=== PATIENT | male | born 1985 | race American Indian/Alaskan Native ===

== ENCOUNTER 2020-11-10 18:34 | Emergency (ER) | payer SELFPAY ==
[2020-11-10 21:18] VITALS: BP 163/100
--- NOTE | 2020-11-10 21:21 | Event Note ---
ED Screening Note Date of service: 11/10/20 Time: 21:19 ED Screening Note: 35-year-old uncircumcised male patient presents emergency department with complaints of painful swelling to the glans penis occurring intermittently for the last few weeks, worsening this morning. States he has continued to pass urine without difficulty. No preceding trauma. No recent surgery. No priapism. General: Awake, appropriately interactive, no acute distress. Neck: Supple. Full range of motion intact. Cardiovascular: Normal peripheral perfusion. Pulmonary: No respiratory distress. Patient is speaking normally without use of accessory muscles. Skin: No apparent rashes or lesions. Neurological: No facial asymmetry. Speech is clear. Follows commands. Patient is alert and oriented. Musculoskeletal: Moves all four extremities spontaneously with normal range of motion. Psych: Cooperative. Appropriate mood and affect. Focused genitourinary exam deferred to additional ED providers once examination room becomes available. I have greeted and performed a focused rapid initial assessment of this patient. A comprehensive ED assessment and evaluation of the patient, analysis of all test results, and completion of the medical decision-making process will be conducted by additional ED providers. This initial assessment/diagnostic orders/clinical plan/treatment(s) is/are subject to change based on patients health status, clinical progression and re-assessment. Further treatment and workup at subsequent clinical provider's discretion. Patient/guardian urged not to elope from the ED as their condition may be serious if not clinically assessed and managed.
[2020-11-10] MEDS ORDERED: AZITHROMYCIN 250 MG TAB PO ONE (21:37)
[2020-11-10] MEDS ORDERED: LIDOCAINE-MPF (1%) 10 MG/1 ML VIAL 5 ML INFILTRATI ONE (21:37)
[2020-11-10] MEDS ORDERED: traMADol 50 MG TAB PO ONE (21:38)
--- NOTE | 2020-11-10 22:04 | Emergency Department Report ---
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 States he has continued to pass urine without difficulty. No preceding trauma. No recent surgery. No priapism. Patient states he is , denies penile discharge, however he has redness irritation and pain is exacerbated by palpation and voiding.. Patient denies hematuria no pyuria. There is been no fevers, chills no abdominal pain no nausea vomiting. Pain rated at 4/10. - Related Data Previous Rx's Medication Instructions Recorded Last Taken Type Doxycycline Monohydrate 100 mg PO 14 #7 tablet 11/10/20 Unknown Rx Mupirocin [Bactroban 2% OINT] 1 applic TP TID #1 tube 11/10/20 Unknown Rx Allergies Allergy/AdvReac Type Severity Reaction Status Date / Time No Known Allergies Allergy Unverified 11/10/20 21:18 ED Review of Systems ROS: Stated complaint: PAINFUL URINATION Other details as noted in HPI Constitutional: denies: chills, fever Eyes: denies: eye pain, eye discharge, vision change ENT: denies: ear pain, throat pain Respiratory: denies: cough, shortness of breath, wheezing Cardiovascular: denies: chest pain, palpitations Endocrine: no symptoms reported Gastrointestinal: as per HPI Genitourinary: urgency, dysuria, frequency, other (shaft swelling erythrhema ). denies: hematuria, discharge, testicular pain, testicular mass Musculoskeletal: denies: back pain, joint swelling, arthralgia Skin: denies: rash, lesions Neurological: denies: headache, weakness, paresthesias Psychiatric: denies: anxiety, depression Hematological/Lymphatic: denies: easy bleeding, easy bruising ED Past Medical Hx - Past Medical History Previous Medical History?: No - Medications Home Medications: Home Medications Medication Instructions Recorded Confirmed Last Taken Type Doxycycline Monohydrate 100 mg PO 14 #7 tablet 11/10/20 Unknown Rx Mupirocin [Bactroban 2% OINT] 1 applic TP TID #1 tube 11/10/20 Unknown Rx ED Physical Exam - General Limitations: Language Barrier General appearance: alert, in no apparent distress - Head Head exam: Present: atraumatic, normocephalic - Eye Eye exam: Present: EOMI Pupils: Present: normal accommodation - ENT ENT exam: Present: mucous membranes moist - Neck Neck exam: Present: normal inspection, full ROM. Absent: tenderness - Respiratory Respiratory exam: Present: normal lung sounds bilaterally. Absent: respiratory distress, wheezes, chest wall tenderness - Cardiovascular Cardiovascular Exam: Present: regular rate, normal rhythm, normal heart sounds - GI/Abdominal GI/Abdominal exam: Present: soft, normal bowel sounds. Absent: distended, tenderness, guarding, rebound, rigid, bruit, hernia - Rectal Rectal exam: Present: deferred - exam: Present: circumcision, other (shaft erythem , swelling pain to touch ). Absent: testicular tenderness, urethral discharge, scrotal swelling, vertical testicular lie External exam: Present: erythema, swelling. Absent: lesions, lacerations, ecchymosis, bleeding - Expanded Exam Expanded Male exam: Present: penile swelling, erythema, balanitis. Absent: lesions, induration, priapism - Extremities Exam Extremities exam: Present: normal inspection - Back Exam Back exam: Present: normal inspection, full ROM. Absent: tenderness, CVA tenderness (R), CVA tenderness (L) - Neurological Exam Neurological exam: Present: alert, oriented X3, CN II-XII intact, normal gait - Psychiatric Psychiatric exam: Present: normal affect, normal mood - Skin Skin exam: Present: warm, dry, intact, normal color. Absent: rash ED Course Vital Signs 11/10/20 21:17 Temperature 98.3 F Pulse Rate 98 H Respiratory 17 Rate Blood Pressure 163/100 O2 Sat by Pulse 95 Oximetry ED Medical Decision Making - Medical Decision Making This is likely balanitis, however patient is 35 years of age patient was treated for STI Rocephin Zithromax in the ED will DC to home with doxycycline and mupirocin ointment patient will follow-up with PCP in 2 to 3 days. pt will return to ed if symptoms worsen Critical care attestation.: If time is entered above; I have spent that time in minutes in the direct care of this critically ill patient, excluding procedure time. ED Disposition Clinical Impression: Balanitis Cellulitis Qualifiers: Site of cellulitis: unspecified site Qualified Code(s): L03.90 - Cellulitis, unspecified Disposition: DC-01 TO HOME OR SELFCARE Is pt being admited?: No Does the pt Need Aspirin: No Condition: Stable Instructions: Cellulitis, Adult, Balanitis Additional Instructions: take medications as prescribed, follow up with our doctor in 2-3 days. Return to emergency if symptoms worsen. Prescriptions: Mupirocin [Bactroban 2% OINT] 1 applic TP TID #1 tube Doxycycline Monohydrate 100 mg PO 14 #7 tablet Referrals: [facility] [Provider Group] - 3-5 Days Forms: Work/School Release Form(ED) Time of Disposition: 22:11 Print Language: BENGALI
== END 2020-11-10 22:30 | disposition home or self-care (01) ==
LOC: EDBD → ED 18:34
DX: N48.1 Balanitis (principal); L03.90 Cellulitis, unspecified; Z79.899 Other long term (current) drug therapy
CPT/HCPCS: 96372; 99282; J0696

== ENCOUNTER 2022-01-30 15:24 | Emergency (ER) | payer OTHER ==
[2022-01-30 15:48] VITALS: BP 130/70
[2022-01-30] MEDS ORDERED: KETOROLAC 30 MG/1 ML INJ IM ONE (21:07)
[2022-01-30] MEDS ORDERED: HYDROcodone/ACETAMINOPHEN 5-325 MG TAB PO ONE (21:07)
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
[2022-01-30] MEDS ORDERED: CYCLOBENZAPRINE 10 MG TAB PO ONE (22:01)
== END 2022-01-30 22:30 | disposition home or self-care (01) ==
LOC: ED 15:24
DX: M25.532 Pain in left wrist (principal); M54.9 Dorsalgia, unspecified; V89.2XXA Person injured in unspecified motor-vehicle accident, traffic, initial encounter; Y93.89 Activity, other specified; Y92.89 Other specified places as the place of occurrence of the external cause; Y99.8 Other external cause status
CPT/HCPCS: 96372; 99282; J1885